=== PATIENT | male | born 2000 | race Caucasian/White ===

== ENCOUNTER 2023-04-09 08:28 | Outpatient (CLI) | payer MEDICAID ==
[2023-04-09 11:59] LABS: BASOPHILS % (AUTO) 0.5 %; EOSINOPHILS # (AUTO) 0.2 10^3/uL (0.0-0.7); EOSINOPHILS % (AUTO) 3.5 %; HCT - HEMATOCRIT 49.9 % (42.0-52.0); LYMPHOCYTES # (AUTO) 1.9 10^3/uL (1.5-3.5); LYMPHOCYTES % (AUTO) 30.1 %; MEAN CORPUSCULAR HEMOGLOBIN 29.5 pg (27.0-31.0); MEAN CORPUSCULAR HGB CONC 34.1 g/dL (32.0-36.0); MEAN CORPUSCULAR VOLUME 86.6 fL (80.0-94.0); MEAN PLATELET VOLUME 10.5 fL (7.4-11.4); MONOCYTES # (AUTO) 0.5 10^3/uL (0.0-1.0); NEUTROPHILS # (AUTO) 3.6 10^3/uL (1.5-6.6); NEUTROPHILS % (AUTO) 57.4 %; PLT - PLATELET COUNT 271 10^3/uL (130-450); RED BLOOD COUNT 5.76 10^6/uL (4.70-6.10); RED CELL DISTRIBUTION WIDTH 11.2 % (12.0-15.0); WHITE BLOOD COUNT 6.3 x10^3/uL (4.8-10.8)
[2023-04-09 12:45] LABS: THYROID STIMULATING HORMONE 4.56 uIU/mL (0.34-5.60)
[2023-04-09 12:48] LABS: ALBUMIN 4.8 g/dL (3.2-5.5); ALBUMIN/GLOBULIN RATIO 1.5 (1.0-2.2); ALKALINE PHOSPHATASE 58 IU/L (42-121); ALT ALANINE AMINOTRANSFERASE 54 IU/L (10-60); AST ASPARTATE AMINOTRANSFERASE 27 IU/L (10-42); BILIRUBIN,TOTAL 0.6 mg/dL (0.2-1.0); BUN - BLOOD UREA NITROGEN 22 mg/dL (6-20); CALCIUM 9.5 mg/dL (8.5-10.3); CARBON DIOXIDE - CO2 26 mmol/L (21-32); CHLORIDE 104 mmol/L (101-111); CRP - C-REACTIVE PROTEIN < 1.0 mg/dL (0-1.0); GFR - MDRD 93 (>89); GLUCOSE 94 mg/dL (70-100); POTASSIUM 3.8 mmol/L (3.5-5.0); SODIUM 138 mmol/L (135-145)
[2023-04-10 19:08] LABS: ANTI-DNA (DS) AB QN 1 IU/mL (0-9); CENTROMERE B ANTIBODIES <0.2 AI (0.0-0.9); CHROMATIN ANTIBODIES <0.2 AI (0.0-0.9); JO-1 AB <0.2 AI (0.0-0.9); RIBOSOMAL P ANTIBODIES <0.2 AI (0.0-0.9); RNP ANTIBODIES <0.2 AI (0.0-0.9); SCLERODERMA-70 ANTIBODIES <0.2 AI (0.0-0.9); SJOGREN'S ANTI-SS-A <0.2 AI (0.0-0.9); SJOGREN'S ANTI-SS-B <0.2 AI (0.0-0.9); SMITH ANTIBODIES <0.2 AI (0.0-0.9); SMITH/RNP ANTIBODIES <0.2 AI (0.0-0.9)
== END 2023-04-09 08:29 | disposition home or self-care (01) ==
LOC: LAB.N 08:28
PROVIDERS: ATTEND Physician Assistant
DX: L50.9 Urticaria, unspecified (principal); Z13.9 Encounter for screening, unspecified
CPT/HCPCS: 36415; 80053; 84443; 85025; 85651; 86038; 86140; 86225; 86235

== ENCOUNTER 2023-05-29 10:54 | Outpatient (CLI) | payer MEDICAID ==
[2023-05-29 11:47] LABS: PROLACTIN 5.22 ng/mL
== END 2023-05-29 10:55 | disposition home or self-care (01) ==
LOC: LAB 10:54
DX: Z00.00 Encounter for general adult medical examination without abnormal findings (principal); E34.9 Endocrine disorder, unspecified; F64.9 Gender identity disorder, unspecified
CPT/HCPCS: 36415; 80053; 82465; 82670; 84146; 84402; 84403; 85025

== ENCOUNTER 2023-07-30 07:32 | Outpatient (CLI) | payer MEDICAID ==
[2023-07-30 12:28] LABS: % IRON SATURATION 29 % (20-50); CRP - C-REACTIVE PROTEIN < 0.5 mg/dL (<0.5); IRON 103 ug/dL (50-212); TOTAL IRON BINDING CAPACITY 357 ug/dL (250-450); TRANSFERRIN 255 mg/dL (203-362)
[2023-07-30 12:36] LABS: THYROID STIMULATING HORMONE 4.65 uIU/mL (0.34-5.60)
[2023-07-30 12:42] LABS: FERRITIN 269.5 ng/mL (23.9-336.2)
[2023-07-31 19:07] LABS: FREE TESTOSTERONE(DIRECT) 10.2 pg/mL (9.3-26.5)
== END 2023-07-30 07:33 | disposition home or self-care (01) ==
LOC: LAB.N 07:32
PROVIDERS: ATTEND Physician Assistant
DX: E29.1 Testicular hypofunction (principal); L50.9 Urticaria, unspecified
CPT/HCPCS: 36415; 82533; 82728; 83540; 84402; 84403; 84439; 84443; 84466; 85651; 86140

== ENCOUNTER 2023-11-15 08:53 | Outpatient (CLI) | payer MEDICAID ==
[2023-11-15 12:28] LABS: ALBUMIN 4.6 g/dL (3.2-5.5); ALBUMIN/GLOBULIN RATIO 1.9 (1.0-2.2); BILIRUBIN,TOTAL 0.3 mg/dL (0.2-1.0); CALCIUM 9.3 mg/dL (8.5-10.3); CREATININE 0.8 mg/dL (0.6-1.3); POTASSIUM 4.1 mmol/L (3.5-4.5)
[2023-11-15 12:34] LABS: PROLACTIN 7.8 ng/mL
[2023-11-16 08:10] LABS: ESTRADIOL 66.9 pg/mL (7.6-42.6)
[2023-11-16 21:07] LABS: FREE TESTOSTERONE(DIRECT) 4.5 pg/mL (9.3-26.5)
== END 2023-11-15 08:54 | disposition home or self-care (01) ==
LOC: LAB.N 08:53
PROVIDERS: ATTEND Advanced Practice Midwife
DX: Z00.00 Encounter for general adult medical examination without abnormal findings (principal); E34.9 Endocrine disorder, unspecified; F64.9 Gender identity disorder, unspecified
CPT/HCPCS: 36415; 80053; 82670; 84146; 84402; 84403